=== PATIENT | male | born 1940 | race Caucasian/White ===

== ENCOUNTER 2024-03-31 13:55 | Outpatient (CLI) | payer MEDICARE, OTHER | END 2024-03-31 23:59 | disposition home or self-care (01) | LOC: MRI 13:55 | PROVIDERS: ATTEND Nurse Practitioner Adult Health | DX: M51.17 Intervertebral disc disorders with radiculopathy, lumbosacral region (principal); M47.26 Other spondylosis with radiculopathy, lumbar region; M41.86 Other forms of scoliosis, lumbar region; M48.07 Spinal stenosis, lumbosacral region; M51.14 Intervertebral disc disorders with radiculopathy, thoracic region; M25.78 Osteophyte, vertebrae; M54.50 Low back pain, unspecified | CPT/HCPCS: 72148 ==